=== PATIENT | female | born 1945 | race Caucasian/White ===

== ENCOUNTER 2016-08-29 10:46 | Outpatient (CLI) | payer OTHER ==
--- NOTE | 2016-08-29 17:57 | DIAGNOSTIC IMAGING REPORT ---
PROCEDURE: MG UNILATERAL DIAG-RT W/CAD INDICATION: Follow-up right breast nodule. History of previous benign right breast biopsy. TECHNIQUE: True lateral digital view of the right breast. In addition, spot compression CC and MLO views were obtained of the upper outer right breast ( region of clinical concern). Finally, high-resolution right breast ultrasound was performed (18 mHz). COMPARISON: Comparison is made to screening mammogram study (06/26/2016). FINDINGS: MAMMOGRAM: Computer-aided detection applied. Confirmation of a 1.4 cm well-circumscribed nodule in the upper outer right breast (1000 position) with small dystrophic calcifications. There are a few other small dystrophic calcifications in the right breast. BREAST ULTRASOUND: There is a 1.4 x 0.8 cm ovoid well-circumscribed nodule in the upper outer right breast which corresponds to the mammographic density and is associated with small dystrophic calcifications IMPRESSION: 1. Confirmation of a 1.4 cm ovoid nodule in the upper outer right breast. 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 While there is no evidence of underlying abnormality, early follow-up right mammogram and right breast ultrasound in 6 months is recommended to confirm stability (as this represents the patient's new baseline). 2. Findings discussed with the patient. RESULT CODE: 3- Probably benign findings - initial short-interval follow-up suggested. A. A negative report should not delay biopsy if a dominant or clinically suspicious mass is present. 10-15% of cancers are not identified by x-ray. B. A negative report may reinforce clinical impression. C. Adenosis and dense breasts may obscure an underlying neoplasm. D. False positive reports average 6-10%. E.. A yearly screening mammogram is recommended. A reminder letter will be scheduled.
== END 2016-08-29 23:00 ==
LOC: MAM SRH 10:46
DX: N63 Unspecified lump in breast (principal); Z98.890 Other specified postprocedural states